=== PATIENT | male | born 1955 | race Caucasian/White ===

== ENCOUNTER 2018-12-24 09:22 | Inpatient (IN) | payer OTHER ==
[2018-12-24 10:25] VITALS: BMI 23.1
--- NOTE | 2018-12-24 11:32 | HP ---
CIWA Score Nausea/Vomitin Muscle Tremors: 2 Anxiety: 2 Agitation: 2 Paroxysmal Sweats: 1-Minimal Palms Moist Orientation: 0-Oriented Tacttile Disturbances: 1-Very Mild Itch/Numbness Auditory Disturbances: 1-Very Mild Visual Disturbances: 0-None Headache: 2-Mild CIWA-Ar Total Score: 13 - Admission Criteria [facility]ASAS Guidelines: Admission for Medically Managed Detox: Requires at least one of the followin. CIWA greater than 12 2. Seizures within the past 24 hours 3. Delirium tremens within the past 24 hours 4. Hallucinations within the past 24 hours 5. Acute intervention needed for co occurring medical disorder 6. Acute intervention needed for co occurring psychiatric disorder 7. Severe withdrawal that cannot be handled at a lower level of care (continued vomiting, continued diarrhea, abnormal vital signs) requiring intravenous medication and/or fluids 8. Admission ROS S - HPI Chief Complaint: i need help to stop drinking alcohol,marijuana,xanax Allergies/Adverse Reactions: Allergies Allergy/AdvReac Type Severity Reaction Status Date / Time No Known Allergies Allergy Verified 12/24/18 10:19 History of Present Illness: this 63 years old male with alcohol,marijuana and xanax dependence,withdrawal symptom, seen in [facility] last night had previous admissions in detox,last 2016 at [place] syncope fell yesterday nicotine dependence 1 pack/day, abrasion of right eyebrow bipolar disorer no medication longest sobriety 7 years plan to go to rehab after detox Exam Limitations: No Limitations - Ebola screening Have you traveled outside of the country in the last 21 days: No Have you had contact with anyone from an Ebola affected area: No Do you have a fever: No - Review of Systems Constitutional: Loss of Appetite, Malaise, Night Sweats, Changes in sleep, Weakness EENT: reports: Nose Congestion, Other (abrasion of right eyebrow) Respiratory: reports: No Symptoms reported Cardiac: reports: No Symptoms Reported GI: reports: Nausea, Poor Appetite, Vomiting, Abdominal cramping : reports: No Symptoms Reported Musculoskeletal: reports: Back Pain, Muscle Pain Integumentary: reports: Dryness Neuro: reports: Headache, Tremors Endocrine: reports: No Symptoms Reported Hematology: reports: No Symptoms Reported Psychiatric: reports: No Sypmtoms Reported, Judgement Intact, Mood/Affect Appropiate, Orientated x3, other (bipolar disorder) Other Systems: Reviewed and Negative Patient History - Patient Medical History Hx Anemia: No Hx Asthma: No Hx Chronic Obstructive Pulmonary Disease (COPD): No Hx Cancer: No Hx Cardiac Disorders: No Hx Congestive Heart Failure: No Hx Hypertension: No Hx Hypercholesterolemia: No Hx Pacemaker: No HX Cerebrovascular Accident: No Hx Seizures: No Hx Dementia: No Hx Diabetes: No Hx Gastrointestinal Disorders: No Hx Liver Disease: No Hx Genitourinary Disorders: No Hx Sexually Transmitted Disorders: No Hx Renal Disease (ESRD): No Hx Thyroid Disease: No Hx Human Immunodeficiency Virus (HIV): No (last 10/21 negative) Hx Hepatitis C: No Hx Depression: No Hx Suicide Attempt: No Hx Bipolar Disorder: Yes (no med) Hx Schizophrenia: No Other Medical History: no suicidal,no homicidal - Patient Surgical History Past Surgical History: No - PPD History Previous Implant?: Yes Documented Results: Negative w/o proof Implanted On Prior [facility] Admission?: No PPD to be Administered?: Yes - Smoking Cessation Smoking history: Current every day smoker Have you smoked in the past 12 months: Yes Aproximately how many cigarettes per day: 20 Cigars Per Day: 0 Hx Chewing Tobacco Use: No Initiated information on smoking cessation: Yes 'Breaking Loose' booklet given: 12/24/18 - Substance & Tx. History Hx Alcohol Use: Yes Hx Substance Use: Yes Substance Use Type: Alcohol, Marijuana, Tranquilizers Hx Substance Use Treatment: Yes ([facility] 2017) - Substances abused Alcohol Substance route: Oral Frequency: Daily Amount used: / WHISKY, 6 CANS OF OF BEER Age of first use: 12 Date of last use: 12/23/18 Alprazolam (Xanax) Substance route: Oral Frequency: 1-2 times per week Amount used: 4 mgs Age of first use: 54 Date of last use: 12/22/18 Marijuana/Hashish Substance route: Smoking Frequency: 1-2 times per week Amount used: 5$ Age of first use: 12 Date of last use: 12/10/18 Family Disease History - Family Disease History Family Disease History: Other: Father (alcohol,decesed), Mother (alcohol, ), Brother (alcohol,dsa), Sister (alcohol,dsa) Admission Physical Exam [facility] - Vital Signs Vital Signs: Vital Signs - 24 hr 12/24/18 10:19 Temperature 98.4 F Pulse Rate 95 H Respiratory 17 Rate Blood Pressure 122/78 - Physical General Appearance: Yes: Moderate Distress, Tremorous, Irritable, Sweating, Anxious HEENTM: Yes: Normal ENT Inspection, EDUARD, Pharynx Normal, Other (abrasion of rught eyebrow) Respiratory: Yes: Lungs Clear, Normal Breath Sounds, No Respiratory Distress Neck: Yes: Within Normal Limits, Supple, Trachea in good position Breast: Yes: Within Normal Limits Cardiology: Yes: Within Normal Limits, Regular Rhythm, Regular Rate, S1, S2 Abdominal: Yes: Within Normal Limits, Normal Bowel Sounds, Non Tender, Flat, Soft Genitourinary: Yes: Within Normal Limits Back: Yes: Muscle Spasm Musculoskeletal: Yes: Back pain, Muscle Pain Extremities: Yes: Within Normal Limits, Normal Range of Motion, Tremors Neurological: Yes: web services developer II-XII NML intact, Fully Oriented, Alert, Motor Strength 5/5 Integumentary: Yes: Dry Lymphatic: Yes: Within Normal Limits - Diagnostic (1) Alcohol dependence with uncomplicated withdrawal Current Visit: Yes Status: Acute (2) Cannabis abuse Current Visit: Yes Status: Acute (3) Sedative, hypnotic or anxiolytic abuse, uncomplicated Current Visit: Yes Status: Acute (4) Alcohol related seizure Current Visit: Yes Status: Acute (5) Syncope Current Visit: Yes Status: Acute (6) Abrasion of right eyebrow Current Visit: Yes Status: Acute (7) Bipolar disorder Current Visit: Yes Status: Acute (8) Nicotine dependence Current Visit: Yes Status: Acute Cleared for Admission [facility] - Detox or Rehab [facility] Level of Care: Medically Managed Detox Regimen/Protocol: Librium Breathalyzer - Breathalyzer Breathalyzer: 0 Urine Drug Screen - Test Device Lot number: [id number] Expiration date: 05/02/20 - Control Is test valid?: Yes - Results Drug screen NEGATIVE: No Urine drug screen results: THC-Marijuana, AMP-Amphetamines, BZO-Benzodiazepines Inpatient Rehab Admission - Rehab Decision to Admit Inpatient rehab admission?: No
[2018-12-24] MEDS ORDERED: MAGNESIUM HYDROX 2400MG/30ML ORAL SUSPENSION 30 ML CUP PO PRN (11:53)
[2018-12-24] MEDS ORDERED: BISMUTH SUBSALICYLATE 262 MG/15 ML BTL PO PRN (11:53)
[2018-12-24] MEDS ORDERED: MENTHOL/PHENOL 1 EACH UD MM PRN (11:53)
[2018-12-24] MEDS ORDERED: chlordiazePOXIDE HCL 25 MG CAPSULE PO PRN (11:53)
[2018-12-24] MEDS ORDERED: MAGNESIUM CITRATE 300 ML BOTTLE PO PRN (11:53)
[2018-12-24] MEDS ORDERED: MAG HYDROX/AL HYDROX/SIMETH 30 ML UNIT-DOSE CUP PO PRN (11:53)
[2018-12-24] MEDS ORDERED: ACETAMINOPHEN 325 MG TABLET (FP) PO PRN (11:53)
[2018-12-24] MEDS: BACITRACIN 0.9 GM PACKET TP SCH ×2 (12:47→22:50)
[2018-12-24] MEDS: NICOTINE 21 MG/24 HOURS TOPICAL PATCH TD SCH (13:57)
[2018-12-24 15:02] LABS: EPI CELLS 1.1 /HPF (0-5/HPF); URINE APPEARANCE CLEAR; URINE BILIRUBIN NEGATIVE (NEGATIVE); URINE CASTS 9 /lpf (0-8); URINE COLOR YELLOW; URINE GLUCOSE (UA) NEGATIVE (NEGATIVE); URINE KETONE NEGATIVE (NEGATIVE); URINE LEUK ESTERASE TRACE (NEGATIVE); URINE NITRITE NEGATIVE (NEGATIVE); URINE PROTEIN NEGATIVE (NEGATIVE); URINE RBC 1 /hpf (0-4); URINE UROBILINOGEN 0.2 mg/dL (0.2-1.0); URINE WBC 6 /hpf (0-5)
--- NOTE | 2018-12-24 15:13 | EKG ---
Test Reason : Blood Pressure : / mmHG Vent. Rate : 086 BPM Atrial Rate : 086 BPM P-R Int : 132 ms QRS Dur : 082 ms QT Int : 378 ms P-R-T Axes : 075 055 073 degrees QTc Int : 452 ms NORMAL SINUS RHYTHM NORMAL ECG NO PREVIOUS ECGS AVAILABLE Confirmed by NEELIMA SUAREZ, ANALISA ([id number]) on 12/24/2018 3:13:03 PM Referred By: Confirmed By:ANALISA ORTEZ MD
[2018-12-24] MEDS: chlordiazePOXIDE HCL 25 MG CAPSULE PO SCH ×2 (18:08→22:50)
[2018-12-24] MEDS: THIAMINE HCL 100 MG TABLET (FP) PO SCH (22:50)
[2018-12-24 22:56] LABS: HEMATOCRIT 41.8 % (35.4-49); HEMOGLOBIN 14.1 GM/dL (11.7-16.9); MCH 30.6 pg (25.7-33.7); MCHC 33.7 g/dl (32.0-35.9); MEAN CELL VOLUME 90.6 fl (80-96); MEAN PLT VOLUME 9.2 fl (7.5-11.1); PLATELET COUNT 163 K/MM3 (134-434); RBC 4.61 M/mm3 (4.00-5.60); RDW 14.4 % (11.9-15.9); WHITE BLOOD COUNT 7.8 K/mm3 (4.0-10.0)
[2018-12-24 23:10] LABS: ALBUMIN 3.6 g/dl (3.4-5.0); ALK PHOS 145 U/L (45-117); ANION GAP 6 MMOL/L (8-16); BILIRUBIN,TOTAL 0.2 mg/dL (0.2-1); BLOOD UREA NITROGEN 23 mg/dL (7-18); CHLORIDE 109 mmol/L (98-107); CO2 28 mmol/L (21-32); CREATININE 0.8 mg/dL (0.55-1.3); GLUCOSE,RANDOM 154 mg/dL (74-106); POTASSIUM 3.8 mmol/L (3.5-5.1); SGOT/AST 28 U/L (15-37); SGPT/ALT 59 U/L (13-61); SODIUM 143 mmol/L (136-145); TOT PROT 6.4 g/dl (6.4-8.2)
[2018-12-25] MEDS: chlordiazePOXIDE HCL 25 MG CAPSULE PO SCH ×4 (06:28→22:16)
[2018-12-25] MEDS: NICOTINE 21 MG/24 HOURS TOPICAL PATCH TD SCH (10:10)
[2018-12-25] MEDS: BACITRACIN 0.9 GM PACKET TP SCH ×2 (10:10→22:15)
[2018-12-25] MEDS: PRENATAL VITAMINS W/ FOLIC ACID TABLET (FP) PO SCH (10:11)
--- NOTE | 2018-12-25 11:45 | CONSULT ---
[facility] Psychiatric Consult - Data Date of interview: 12/25/18 Identifying data: Mr Judge is a 63 years old male, unemployed receiving public assistance, homeless seeking detox treatment for alcohol, benzodiazepine and cannabis Substance Abuse History: Reports history of alcohol, xanax and marijuana use. Refer to addiction counselor's summary for further information Medical History: Unremarkable except alcohol withdrawal seizure years ago. Smokes cigarettes 1 ppd Psychiatric History: Patient is a vague, non informative historian. Reports that he was diagnosed with Bipolar Disorder years ago and one previous psychiatric admission to [facility]. He could not provide any information regarding specific date, prescribed medications etc. Denies that he currently receives outpatient psychiatric treatment. However, external medication search shows scripts for Lorazepam 0.5 mg #60 and Ambien 10 mg#30 filled on 12/11/18 at [facility]. When confronted about these prescriptions, he admitted that he was prescribed these medications by a psychiarist he saw in [place], [place]. Claims he does not know what happened to these medications. Denies previous suicidal attempt. At present, denies experiencing psychotic, manic symptoms, S/ H ideations. However, he comes across as mildly irritable and reports feeling depressed and sleeping poorly Physical/Sexual Abuse/Trauma History: Denies history of emotional, physical or sexual abuse as well as DV relationship Additional Comment: Reports history of multiple previous arrests including a few felony convictions. Denies being on parole/probation at present Mental Status Exam - Mental Status Exam Alert and Oriented to: Time, Place, Person Patient Appearance: Disheveled Mood: Depressed, Irritable Affect: Appropriate Patient Behavior: Cooperative (superficially) Speech Pattern: Clear Voice Loudness: Normal Thought Process: Intact, Goal Oriented Thought Disorder: Not Present Hallucinations: Denies Suicidal Ideation: Denies Homicidal Ideation: Denies Insight/Judgement: Poor Sleep: Poorly Appetite: Poor Muscle strength/Tone: Normal Gait/Station: Normal Psychiatric Findings - Problem List ([place] 1, 2,3) (1) Mood disorder Current Visit: Yes Status: Chronic (2) Bipolar disorder Current Visit: Yes Status: Ruled-out (3) Alcohol dependence with uncomplicated withdrawal Current Visit: Yes Status: Acute (4) Sedative, hypnotic or anxiolytic abuse, uncomplicated Current Visit: Yes Status: Acute (5) Cannabis abuse Current Visit: Yes Status: Acute (6) Nicotine dependence Current Visit: Yes Status: Chronic (7) Alcohol related seizure Current Visit: Yes Status: Resolved - Initial Treatment Plan Initial Treatment Plan: 1) Start Melatonin 5 mg po HS prn for insomnia. 2) Continue inpatient detoxification
--- NOTE | 2018-12-25 13:34 | PN ---
[facility] CIWA - CIWA Score Nausea/Vomitin-No Nausea/No Vomiting Muscle Tremors: 3 Anxiety: 3 Agitation: 3 Paroxysmal Sweats: 3 Orientation: 0-Oriented Tacttile Disturbances: 0-None Auditory Disturbances: 0-None Visual Disturbances: 0-None Headache: 0-None Present CIWA-Ar Total Score: 12 S Progress Note (SOAP) Subjective: shakes sweats unsteady body aches Objective: 12/25/18 13:33 Vital Signs Temperature 97.9 F 12/25/18 09:09 Pulse Rate 82 12/25/18 09:09 Respiratory Rate 18 12/25/18 09:09 Blood Pressure 104/69 12/25/18 09:09 O2 Sat by Pulse Oximetry (%) Laboratory Tests 12/24/18 12/24/18 12/24/18 12:00 12:00 12:00 WBC 7.8 RBC 4.61 Hgb 14.1 Hct 41.8 MCV 90.6 MCH 30.6 MCHC 33.7 RDW 14.4 Plt Count 163 MPV 9.2 Sodium 143 Potassium 3.8 Chloride 109 H Carbon Dioxide 28 Anion Gap 6 L BUN 23 H Creatinine 0.8 Creat Clearance w eGFR 97.32 Random Glucose 154 H Calcium 9.0 Total Bilirubin 0.2 AST 28 ALT 59 Alkaline Phosphatase 145 H Total Protein 6.4 Albumin 3.6 Urine Color Yellow Urine Appearance Clear Urine pH 5.0 Ur Specific [place] 1.024 Urine Protein Negative Urine Glucose (UA) Negative Urine Ketones Negative Urine Blood Negative Urine Nitrite Negative Urine Bilirubin Negative Urine Urobilinogen 0.2 Ur Leukocyte Esterase Trace Urine WBC (Auto) 6 Urine RBC (Auto) 1 Urine Casts (Auto) 9 U Epithel Cells (Auto) 1.1 Urine Bacteria (Auto) 1.0 RPR Titer 12/24/18 12:00 WBC RBC Hgb Hct MCV MCH MCHC RDW Plt Count MPV Sodium Potassium Chloride Carbon Dioxide Anion Gap BUN Creatinine Creat Clearance w eGFR Random Glucose Calcium Total Bilirubin AST ALT Alkaline Phosphatase Total Protein Albumin Urine Color Urine Appearance Urine pH Ur Specific [place] Urine Protein Urine Glucose (UA) Urine Ketones Urine Blood Urine Nitrite Urine Bilirubin Urine Urobilinogen Ur Leukocyte Esterase Urine WBC (Auto) Urine RBC (Auto) Urine Casts (Auto) U Epithel Cells (Auto) Urine Bacteria (Auto) RPR Titer Nonreactive aaox3 ambulating no acute distress Assessment: 12/25/18 13:33 withdrawal sx Plan: continue detox increase fluids
--- NOTE | 2018-12-25 17:45 | PN ---
S Progress Note Note: Vital Signs Temp 98.1 F 12/25/18 17:15 Pulse 85 12/25/18 17:15 Resp 18 12/25/18 17:15 BP 126/69 12/25/18 17:15 Pulse Ox patient requested neurontin, home list reviewed patient on neuronitn 300 mg qd for naturopathic pain. Med ordered \ continue to monitor
[2018-12-25] MEDS ORDERED: GABAPENTIN 300 MG CAPSULE (FP) PO ONE (18:00)
[2018-12-25] MEDS: METHOCARBAMOL 500 MG TABLET PO PRN (20:20)
[2018-12-25] MEDS: THIAMINE HCL 100 MG TABLET (FP) PO SCH (22:15)
[2018-12-25] MEDS: MELATONIN 5 MG TABLETS PO PRN (22:16)
[2018-12-26] MEDS: chlordiazePOXIDE HCL 25 MG CAPSULE PO SCH ×2 (05:22→10:04)
[2018-12-26] MEDS: GABAPENTIN 300 MG CAPSULE (FP) PO SCH (10:04)
[2018-12-26] MEDS: PRENATAL VITAMINS W/ FOLIC ACID TABLET (FP) PO SCH (10:04)
[2018-12-26] MEDS: NICOTINE 21 MG/24 HOURS TOPICAL PATCH TD SCH (10:05)
--- NOTE | 2018-12-26 10:57 | PN ---
[facility] CIWA - CIWA Score Nausea/Vomitin-No Nausea/No Vomiting Muscle Tremors: 3 Anxiety: 2 Agitation: 3 Paroxysmal Sweats: 3 Orientation: 0-Oriented Tacttile Disturbances: 0-None Auditory Disturbances: 0-None Visual Disturbances: 0-None Headache: 0-None Present CIWA-Ar Total Score: 11 [facility] Progress Note (SOAP) Subjective: body aches sweats shakes interrupted sleep body aches Objective: 12/26/18 10:56 Vital Signs Temperature 96.4 F L 12/26/18 09:19 Pulse Rate 84 12/26/18 09:19 Respiratory Rate 18 12/26/18 09:19 Blood Pressure 124/72 12/26/18 09:19 O2 Sat by Pulse Oximetry (%) Laboratory Tests 12/24/18 12/24/18 12/24/18 12:00 12:00 12:00 WBC 7.8 RBC 4.61 Hgb 14.1 Hct 41.8 MCV 90.6 MCH 30.6 MCHC 33.7 RDW 14.4 Plt Count 163 MPV 9.2 Sodium 143 Potassium 3.8 Chloride 109 H Carbon Dioxide 28 Anion Gap 6 L BUN 23 H Creatinine 0.8 Creat Clearance w eGFR 97.32 Random Glucose 154 H Calcium 9.0 Total Bilirubin 0.2 AST 28 ALT 59 Alkaline Phosphatase 145 H Total Protein 6.4 Albumin 3.6 Urine Color Yellow Urine Appearance Clear Urine pH 5.0 Ur Specific [place] 1.024 Urine Protein Negative Urine Glucose (UA) Negative Urine Ketones Negative Urine Blood Negative Urine Nitrite Negative Urine Bilirubin Negative Urine Urobilinogen 0.2 Ur Leukocyte Esterase Trace Urine WBC (Auto) 6 Urine RBC (Auto) 1 Urine Casts (Auto) 9 U Epithel Cells (Auto) 1.1 Urine Bacteria (Auto) 1.0 RPR Titer 12/24/18 12:00 WBC RBC Hgb Hct MCV MCH MCHC RDW Plt Count MPV Sodium Potassium Chloride Carbon Dioxide Anion Gap BUN Creatinine Creat Clearance w eGFR Random Glucose Calcium Total Bilirubin AST ALT Alkaline Phosphatase Total Protein Albumin Urine Color Urine Appearance Urine pH Ur Specific [place] Urine Protein Urine Glucose (UA) Urine Ketones Urine Blood Urine Nitrite Urine Bilirubin Urine Urobilinogen Ur Leukocyte Esterase Urine WBC (Auto) Urine RBC (Auto) Urine Casts (Auto) U Epithel Cells (Auto) Urine Bacteria (Auto) RPR Titer Nonreactive aaox3 ambulating no acute distress Assessment: 12/26/18 10:57 withdrawal sx Plan: continue detox increase fluids
[2018-12-26] MEDS: BACITRACIN 0.9 GM PACKET TP SCH ×2 (11:27→22:03)
[2018-12-26] MEDS ORDERED: chlordiazePOXIDE HCL 10 MG CAPSULE PO PRN (17:00)
[2018-12-26] MEDS: chlordiazePOXIDE HCL 10 MG CAPSULE PO SCH ×2 (17:47→22:03)
[2018-12-26] MEDS: METHOCARBAMOL 500 MG TABLET PO PRN (17:49)
[2018-12-26] MEDS: hydrOXYzine PAMOATE 25 MG CAPSULE (FP) PO PRN (17:49)
[2018-12-26] MEDS: MELATONIN 5 MG TABLETS PO PRN (22:03)
[2018-12-26] MEDS: THIAMINE HCL 100 MG TABLET (FP) PO SCH (22:03)
[2018-12-27] MEDS: hydrOXYzine PAMOATE 25 MG CAPSULE (FP) PO PRN ×4 (00:23→22:09)
[2018-12-27] MEDS: chlordiazePOXIDE HCL 10 MG CAPSULE PO SCH ×3 (05:28→17:23)
[2018-12-27] MEDS: IBUPROFEN 400 MG TABLET (FP) PO PRN (10:10)
[2018-12-27] MEDS: METHOCARBAMOL 500 MG TABLET PO PRN ×2 (10:10→17:23)
[2018-12-27] MEDS: BACITRACIN 0.9 GM PACKET TP SCH ×2 (10:11→22:07)
[2018-12-27] MEDS: PRENATAL VITAMINS W/ FOLIC ACID TABLET (FP) PO SCH (10:11)
[2018-12-27] MEDS: NICOTINE 21 MG/24 HOURS TOPICAL PATCH TD SCH (10:11)
[2018-12-27] MEDS: GABAPENTIN 300 MG CAPSULE (FP) PO SCH (10:11)
--- NOTE | 2018-12-27 12:57 | PN ---
S CIWA - CIWA Score Nausea/Vomitin-No Nausea/No Vomiting Muscle Tremors: 2 Anxiety: 1-Mildly Anxious Agitation: 2 Paroxysmal Sweats: 1-Minimal Palms Moist Orientation: 0-Oriented Tacttile Disturbances: 0-None Auditory Disturbances: 0-None Visual Disturbances: 0-None Headache: 0-None Present CIWA-Ar Total Score: 6 [facility] Progress Note (SOAP) Subjective: shakes agitation Objective: 12/27/18 12:56 Vital Signs Temperature 97.7 F 12/27/18 09:43 Pulse Rate 88 12/27/18 09:43 Respiratory Rate 16 12/27/18 09:43 Blood Pressure 113/65 12/27/18 09:43 O2 Sat by Pulse Oximetry (%) aaox3 ambulating no acute distress Assessment: 12/27/18 12:57 mild withdrawal sx Plan: continue detox increase fluids
[2018-12-27] MEDS: ACETAMINOPHEN 325 MG TABLET (FP) PO PRN (15:12)
[2018-12-27] MEDS: THIAMINE HCL 100 MG TABLET (FP) PO SCH (22:07)
[2018-12-27] MEDS: MELATONIN 5 MG TABLETS PO PRN (22:07)
[2018-12-28] MEDS: IBUPROFEN 400 MG TABLET (FP) PO PRN (02:14)
[2018-12-28] MEDS: hydrOXYzine PAMOATE 25 MG CAPSULE (FP) PO PRN ×3 (03:10→22:28)
[2018-12-28] MEDS: chlordiazePOXIDE HCL 10 MG CAPSULE PO SCH ×2 (06:18→17:37)
--- NOTE | 2018-12-28 11:19 | PN ---
S CIWA - CIWA Score Nausea/Vomitin-No Nausea/No Vomiting Muscle Tremors: 2 Anxiety: 2 Agitation: 0-Normal Activity Paroxysmal Sweats: No Perspiration Orientation: 0-Oriented Tacttile Disturbances: 0-None Auditory Disturbances: 0-None Visual Disturbances: 0-None Headache: 1-Very Mild CIWA-Ar Total Score: 5 [facility] Progress Note (SOAP) Subjective: patient c/o anxiety, shakes and headache Objective: 12/28/18 11:18 Laboratory Tests 12/24/18 12/24/18 12/24/18 12:00 12:00 12:00 WBC 7.8 RBC 4.61 Hgb 14.1 Hct 41.8 MCV 90.6 MCH 30.6 MCHC 33.7 RDW 14.4 Plt Count 163 MPV 9.2 Sodium 143 Potassium 3.8 Chloride 109 H Carbon Dioxide 28 Anion Gap 6 L BUN 23 H Creatinine 0.8 Creat Clearance w eGFR 97.32 Random Glucose 154 H Calcium 9.0 Total Bilirubin 0.2 AST 28 ALT 59 Alkaline Phosphatase 145 H Total Protein 6.4 Albumin 3.6 Urine Color Yellow Urine Appearance Clear Urine pH 5.0 Ur Specific [place] 1.024 Urine Protein Negative Urine Glucose (UA) Negative Urine Ketones Negative Urine Blood Negative Urine Nitrite Negative Urine Bilirubin Negative Urine Urobilinogen 0.2 Ur Leukocyte Esterase Trace Urine WBC (Auto) 6 Urine RBC (Auto) 1 Urine Casts (Auto) 9 U Epithel Cells (Auto) 1.1 Urine Bacteria (Auto) 1.0 RPR Titer 12/24/18 12:00 WBC RBC Hgb Hct MCV MCH MCHC RDW Plt Count MPV Sodium Potassium Chloride Carbon Dioxide Anion Gap BUN Creatinine Creat Clearance w eGFR Random Glucose Calcium Total Bilirubin AST ALT Alkaline Phosphatase Total Protein Albumin Urine Color Urine Appearance Urine pH Ur Specific [place] Urine Protein Urine Glucose (UA) Urine Ketones Urine Blood Urine Nitrite Urine Bilirubin Urine Urobilinogen Ur Leukocyte Esterase Urine WBC (Auto) Urine RBC (Auto) Urine Casts (Auto) U Epithel Cells (Auto) Urine Bacteria (Auto) RPR Titer Nonreactive Vital Signs Temperature 97.7 F 12/28/18 09:35 Pulse Rate 85 12/28/18 09:35 Respiratory Rate 18 12/28/18 09:35 Blood Pressure 129/79 12/28/18 09:35 O2 Sat by Pulse Oximetry (%) pe: alert and oriented x 3 skin warm and dry ext +tremors, amb ad norbert anxious Assessment: 12/28/18 11:19 withdrawal sx Plan: continue detox for d/c in am
[2018-12-28] MEDS: GABAPENTIN 300 MG CAPSULE (FP) PO SCH (11:23)
[2018-12-28] MEDS: BACITRACIN 0.9 GM PACKET TP SCH ×2 (11:23→22:30)
[2018-12-28] MEDS: NICOTINE 21 MG/24 HOURS TOPICAL PATCH TD SCH (11:24)
[2018-12-28] MEDS: PRENATAL VITAMINS W/ FOLIC ACID TABLET (FP) PO SCH (11:24)
[2018-12-28] MEDS: METHOCARBAMOL 500 MG TABLET PO PRN (18:59)
[2018-12-28] MEDS: THIAMINE HCL 100 MG TABLET (FP) PO SCH (22:28)
[2018-12-28] MEDS: MELATONIN 5 MG TABLETS PO PRN (22:28)
[2018-12-29] MEDS: hydrOXYzine PAMOATE 25 MG CAPSULE (FP) PO PRN (03:30)
[2018-12-29] MEDS: METHOCARBAMOL 500 MG TABLET PO PRN (05:23)
[2018-12-29] MEDS: ACETAMINOPHEN 325 MG TABLET (FP) PO PRN (06:42)
--- NOTE | 2018-12-29 10:09 | DS ---
[facility] Detox Discharge Summary Admission Date: 12/24/18 Discharge Date: 12/29/18 - History Present History: Alcohol Dependence, Cannabis Dependence, Sedative Dependence - Physical Exam Results Vital Signs: Vital Signs Temperature 97.2 F L 12/29/18 09:05 Pulse Rate 90 12/29/18 09:05 Respiratory Rate 18 12/29/18 09:05 Blood Pressure 134/83 12/29/18 09:05 O2 Sat by Pulse Oximetry (%) - Treatment Hospital Course: Detox Protocol Followed, Detoxed Safely, Responded well, Discharged Condition Good, Rehab Referral Accepted - Medication Discharge Medications: Ambulatory Orders NK [No Known Home Medication] 12/24/18 - Diagnosis (1) Abrasion of right eyebrow Current Visit: Yes Status: Acute Qualifiers: Encounter type: initial encounter Qualified Code(s): S00.211A - Abrasion of right eyelid and periocular area, initial encounter (2) Alcohol dependence with uncomplicated withdrawal Current Visit: Yes Status: Chronic (3) Bipolar disorder Current Visit: Yes Status: Acute (4) Cannabis abuse Current Visit: Yes Status: Chronic (5) Sedative, hypnotic or anxiolytic abuse, uncomplicated Current Visit: Yes Status: Chronic (6) Syncope Current Visit: Yes Status: Acute (7) Mood disorder Current Visit: Yes Status: Chronic (8) Nicotine dependence Current Visit: Yes Status: Chronic Qualifiers: Nicotine product type: cigarettes Substance use status: uncomplicated Qualified Code(s): F17.210 - Nicotine dependence, cigarettes, uncomplicated (9) Alcohol related seizure Current Visit: No Status: Resolved (10) Bipolar disorder Current Visit: Yes Status: Ruled-out - AMA Did Patient Leave Against Medical Advice: No (referred to inpatient rehab)
[2018-12-29] MEDS: PRENATAL VITAMINS W/ FOLIC ACID TABLET (FP) PO SCH (10:16)
[2018-12-29] MEDS: BACITRACIN 0.9 GM PACKET TP SCH (10:16)
[2018-12-29] MEDS: GABAPENTIN 300 MG CAPSULE (FP) PO SCH (10:16)
[2018-12-29] MEDS: NICOTINE 21 MG/24 HOURS TOPICAL PATCH TD SCH (10:18)
[2018-12-29 13:26] VITALS: BP 135/80; PULSE 88; TEMP 97.4
== END 2018-12-29 14:11 | disposition home or self-care (01) | DRG 775 ==
LOC: YASAS 09:22 → Y6N 12:14
PROVIDERS: ADMIT Surgery; ATTEND Surgery
PROC: HZ2ZZZZ Detoxification Services for Substance Abuse Treatment (ICD-10-PCS; principal; 2018-12-24)
DX: F10.230 Alcohol dependence with withdrawal, uncomplicated (principal); F13.230 Sedative, hypnotic or anxiolytic dependence with withdrawal, uncomplicated; F12.20 Cannabis dependence, uncomplicated; F17.210 Nicotine dependence, cigarettes, uncomplicated; F39 Unspecified mood [affective] disorder; F31.9 Bipolar disorder, unspecified; R55 Syncope and collapse; R56.9 Unspecified convulsions; S00.211D Abrasion of right eyelid and periocular area, subsequent encounter; Z91.81 History of falling
CPT/HCPCS: 36415; 80053; 81003; 85027; 86593; 93005; 93010

== ENCOUNTER 2019-01-28 11:15 | Inpatient (IN) | payer OTHER ==
[2019-01-28 13:19] VITALS: BMI 23.3
--- NOTE | 2019-01-28 16:25 | HP ---
CIWA Score Nausea/Vomitin-No Nausea/No Vomiting Muscle Tremors: 4-Moderate,w/Arms Extend Anxiety: 3 Agitation: 3 Paroxysmal Sweats: 3 Orientation: 0-Oriented Tacttile Disturbances: 0-None Auditory Disturbances: 0-None Visual Disturbances: 0-None Headache: 0-None Present CIWA-Ar Total Score: 13 - Admission Criteria OASAS Guidelines: Admission for Medically Managed Detox: Requires at least one of the followin. CIWA greater than 12 2. Seizures within the past 24 hours 3. Delirium tremens within the past 24 hours 4. Hallucinations within the past 24 hours 5. Acute intervention needed for co occurring medical disorder 6. Acute intervention needed for co occurring psychiatric disorder 7. Severe withdrawal that cannot be handled at a lower level of care (continued vomiting, continued diarrhea, abnormal vital signs) requiring intravenous medication and/or fluids 8. Admission ROS S - HPI Chief Complaint: I recently relapsed and need to be here again for detox and rehab. Allergies/Adverse Reactions: Allergies Allergy/AdvReac Type Severity Reaction Status Date / Time No Known Allergies Allergy Verified 12/24/18 10:19 History of Present Illness: pt is a 63yr old male with a history of alcohol dependence seeking detox for treatment. Exam Limitations: No Limitations - Ebola screening Have you traveled outside of the country in the last 21 days: No (N) Have you had contact with anyone from an Ebola affected area: No Have you been sick,other than usual withdrawal symptoms: No Do you have a fever: No - Review of Systems Constitutional: Chills, Night Sweats, Changes in sleep EENT: reports: Tearing, Nose Congestion Respiratory: reports: No Symptoms reported Cardiac: reports: No Symptoms Reported GI: reports: Poor Appetite, Poor Fluid Intake : reports: No Symptoms Reported Musculoskeletal: reports: Back Pain, Joint Pain Integumentary: reports: Dryness, Flushing, Sweating Neuro: reports: Headache, Tingling, Tremors Endocrine: reports: Excessive Sweating, Flushing, Intolerance to Cold, Intolerance to Heat Hematology: reports: No Symptoms Reported Psychiatric: reports: Judgement Intact, Mood/Affect Appropiate, Orientated x3, Agitated, Anxious Other Systems: Reviewed and Negative Patient History - Patient Medical History Hx Anemia: No Hx Asthma: No Hx Chronic Obstructive Pulmonary Disease (COPD): No Hx Cancer: No Hx Cardiac Disorders: No Hx Congestive Heart Failure: No Hx Hypertension: No Hx Hypercholesterolemia: No Hx Pacemaker: No HX Cerebrovascular Accident: No Hx Seizures: No Hx Dementia: No Hx Diabetes: No Hx Gastrointestinal Disorders: No Hx Liver Disease: No Hx Genitourinary Disorders: No Hx Sexually Transmitted Disorders: No Hx Renal Disease (ESRD): No Hx Thyroid Disease: No Hx Human Immunodeficiency Virus (HIV): No (last 10/21 negative) Hx Hepatitis C: No Hx Depression: No Hx Suicide Attempt: No Hx Bipolar Disorder: Yes (no med) Hx Schizophrenia: No - Patient Surgical History Past Surgical History: No - PPD History Previous Implant?: Yes Documented Results: Negative w/proof Date: 12/26/18 Results: 0mm PPD to be Administered?: No - Reproductive History Patient is a Female of Child Bearing Age (11 -55 yrs old): No - Smoking Cessation Smoking history: Current every day smoker Have you smoked in the past 12 months: Yes Aproximately how many cigarettes per day: 20 Cigars Per Day: 0 Hx Chewing Tobacco Use: No Initiated information on smoking cessation: Yes 'Breaking Loose' booklet given: 01/28/19 - Substance & Tx. History Hx Alcohol Use: Yes Hx Substance Use: Yes Substance Use Type: Alcohol, Marijuana, Tranquilizers Hx Substance Use Treatment: Yes ([facility] 12/2018) - Substances abused Alcohol Substance route: Oral Frequency: Daily Amount used: 1/5 TH WHISKY, 6 CANS OF OF BEER Age of first use: 12 Date of last use: 01/27/19 Alprazolam (Xanax) Substance route: Oral Frequency: 1-2 times per week Amount used: 4 mgs Age of first use: 54 Date of last use: 01/14/19 Marijuana/Hashish Substance route: Smoking Frequency: 1-2 times per week Amount used: 5$ Age of first use: 12 Date of last use: 12/10/18 Other Other (specify): Percocet Substance route: Oral Frequency: 3-6 times per week Amount used: 5 Age of first use: 39 Date of last use: 01/22/19 Family Disease History - Family Disease History Family Disease History: Other: Father (alcohol,decesed), Mother (alcohol, ), Brother (alcohol,dsa), Sister (alcohol,dsa) Admission Physical Exam [facility] - Vital Signs Vital Signs: Vital Signs - 24 hr 01/28/19 13:11 Temperature 97.5 F L Pulse Rate 71 Respiratory 20 Rate Blood Pressure 107/71 - Physical General Appearance: Yes: Appropriately Dressed, Moderate Distress, Tremorous, Irritable, Sweating, Anxious HEENTM: Yes: Normal Voice, Nasal Congestion Respiratory: Yes: Lungs Clear, Normal Breath Sounds, No Respiratory Distress Neck: Yes: No masses,lesions,Nodules Breast: Yes: Within Normal Limits Cardiology: Yes: Regular Rhythm, Regular Rate, S1, S2 Abdominal: Yes: Normal Bowel Sounds, Non Tender, Soft Genitourinary: Yes: Within Normal Limits Back: Yes: Normal Inspection Musculoskeletal: Yes: full range of Motion Extremities: Yes: Normal Capillary Refill, Normal Inspection, Non-Tender, Tremors Neurological: Yes: Fully Oriented, Alert, Normal Response Integumentary: Yes: Normal Color Lymphatic: Yes: Within Normal Limits - Diagnostic (1) Bipolar disorder Current Visit: Yes Status: Acute (2) Alcohol dependence with uncomplicated withdrawal Current Visit: Yes Status: Chronic (3) Cannabis abuse Current Visit: Yes Status: Chronic (4) Nicotine dependence Current Visit: Yes Status: Chronic Qualifiers: Nicotine product type: cigarettes Substance use status: uncomplicated Qualified Code(s): F17.210 - Nicotine dependence, cigarettes, uncomplicated (5) Sedative, hypnotic or anxiolytic abuse, uncomplicated Current Visit: Yes Status: Chronic Cleared for Admission [facility] - Detox or Rehab [facility] Level of Care: Medically Managed Detox Regimen/Protocol: Librium Breathalyzer - Breathalyzer Breathalyzer: 0 Urine Drug Screen - Test Device Lot number: [id number] Expiration date: 05/02/20 - Control Is test valid?: Yes - Results Drug screen NEGATIVE: No Urine drug screen results: THC-Marijuana, AMP-Amphetamines, BZO-Benzodiazepines Inpatient Rehab Admission - Rehab Decision to Admit Inpatient rehab admission?: No
[2019-01-28] MEDS ORDERED: IBUPROFEN 400 MG TABLET (FP) PO PRN (16:36)
[2019-01-28] MEDS ORDERED: MAG HYDROX/AL HYDROX/SIMETH 30 ML UNIT-DOSE CUP PO PRN (16:36)
[2019-01-28] MEDS ORDERED: MAGNESIUM HYDROX 2400MG/30ML ORAL SUSPENSION 30 ML CUP PO PRN (16:36)
[2019-01-28] MEDS ORDERED: MENTHOL/PHENOL 1 EACH UD MM PRN (16:36)
[2019-01-28] MEDS ORDERED: ACETAMINOPHEN 325 MG TABLET (FP) PO PRN ×2 (16:36)
[2019-01-28] MEDS ORDERED: MAGNESIUM CITRATE 300 ML BOTTLE PO PRN (16:36)
[2019-01-28] MEDS ORDERED: ONDANSETRON *ODT* 4 MG TABLET SL PRN (16:36)
[2019-01-28] MEDS: chlordiazePOXIDE HCL 25 MG CAPSULE PO PRN (17:43)
[2019-01-28] MEDS: THIAMINE HCL 100 MG TABLET (FP) PO SCH (22:33)
[2019-01-28] MEDS: MELATONIN 5 MG TABLETS PO PRN (22:33)
[2019-01-28] MEDS: chlordiazePOXIDE HCL 25 MG CAPSULE PO SCH (22:33)
[2019-01-29] MEDS: chlordiazePOXIDE HCL 25 MG CAPSULE PO SCH ×4 (06:46→22:37)
--- NOTE | 2019-01-29 08:56 | CONSULT ---
[facility] Psychiatric Consult - Data Date of interview: 01/29/19 Admission source: [facility] Identifying data: Mr Hernandez is a 63 years old , unemployed receiving food stamp, homeless seeking detox treatment for alcohol, opioid, benzodiazepune abd cannabis Substance Abuse History: Reports history of alcohol, percocet, xanax and marijuana use. Refer to addiction counselor's summary for further information Medical History: Significant for alcohol related seizure. Smokes [id number] Psychiatric History: Patient is a poor, unreliable historian. Reports that he was diagnosed with Bipolar Disorder a few years ago. Reports one previous psychiatric hospitalization in a facility in [place]. He is unable not only to provide admission date and name of facility buy and detals pertinent to that admission including treatment. Denies current OPD care or suicidal attempt.External medication history shows scripts for 30 days supply Gabapentin 300 mg#90 and Seroquel 50 mg#90. When confronted regarding above, he said that Gabapentin is for neuropathy and Seroquel was prescribed to him for sleep but he hardly takes it. At present, denies experiencing psychotic, manic or depressive symptoms, S/H ideations Physical/Sexual Abuse/Trauma History: Denies history of emotional, physical or sexual abuse as well as DV relationship. No service Additional Comment: Reports history of multiple previous arrrests including one felony conviction. Denies being on parole/probation at present. Mental Status Exam - Mental Status Exam Alert and Oriented to: Time, Place, Person Cognitive Function: Fair Patient Appearance: Disheveled Mood: Hopeful, Euthymic Patient Behavior: Cooperative Speech Pattern: Clear Voice Loudness: Normal Thought Process: Intact, Goal Oriented Hallucinations: Denies Suicidal Ideation: Denies Homicidal Ideation: Denies Insight/Judgement: Poor Sleep: Poorly Appetite: Fair Muscle strength/Tone: Normal Gait/Station: Normal Psychiatric Findings - Problem List (Luther 1, 2,3) (1) Mood disorder Current Visit: Yes Status: Chronic (2) Bipolar disorder Current Visit: Yes Status: Ruled-out (3) Substance-induced sleep disorder Current Visit: Yes Status: Acute (4) Alcohol dependence with uncomplicated withdrawal Current Visit: Yes Status: Chronic (5) Opioid dependence with withdrawal Current Visit: Yes Status: Acute (6) Sedative, hypnotic or anxiolytic abuse, uncomplicated Current Visit: Yes Status: Acute (7) Cannabis abuse Current Visit: Yes Status: Acute (8) Nicotine dependence Current Visit: Yes Status: Chronic Qualifiers: Nicotine product type: cigarettes Substance use status: uncomplicated Qualified Code(s): F17.210 - Nicotine dependence, cigarettes, uncomplicated (9) Alcohol related seizure Current Visit: Yes Status: Resolved - Initial Treatment Plan Initial Treatment Plan: Continue inpatient detoxification
[2019-01-29 10:12] LABS: ALBUMIN 3.4 g/dl (3.4-5.0); BILIRUBIN,TOTAL 0.2 mg/dL (0.2-1); CALCIUM 8.2 mg/dL (8.5-10.1); CREATININE 0.6 mg/dL (0.55-1.3); POTASSIUM 3.9 mmol/L (3.5-5.1)
[2019-01-29 10:27] LABS: HEMATOCRIT 41.9 % (35.4-49); HEMOGLOBIN 14.2 GM/dL (11.7-16.9); MCH 30.1 pg (25.7-33.7); MCHC 33.9 g/dl (32.0-35.9); MEAN CELL VOLUME 88.7 fl (80-96); MEAN PLT VOLUME 9.9 fl (7.5-11.1); PLATELET COUNT 176 K/MM3 (134-434); RBC 4.73 M/mm3 (4.00-5.60); RDW 13.4 % (11.9-15.9); WHITE BLOOD COUNT 5.9 K/mm3 (4.0-10.0)
[2019-01-29] MEDS: PRENATAL VITAMINS W/ FOLIC ACID TABLET (FP) PO SCH (10:39)
[2019-01-29] MEDS: NICOTINE 21 MG/24 HOURS TOPICAL PATCH TD SCH (10:40)
--- NOTE | 2019-01-29 11:57 | PN ---
S CIWA - CIWA Score Nausea/Vomitin Muscle Tremors: 2 Anxiety: 2 Agitation: 2 Paroxysmal Sweats: 2 Orientation: 0-Oriented Tacttile Disturbances: 1-Very Mild Itch/Numbness Auditory Disturbances: 1-Very Mild Visual Disturbances: 0-None Headache: 2-Mild CIWA-Ar Total Score: 14 S Progress Note (SOAP) Subjective: alert,irritable,anxious,interrupted sleep, Objective: 01/29/19 11:54 Vital Signs Temperature 96.6 F L 01/29/19 09:53 Pulse Rate 71 01/29/19 09:53 Respiratory Rate 18 01/29/19 09:53 Blood Pressure 115/65 01/29/19 09:53 O2 Sat by Pulse Oximetry (%) 01/29/19 11:55 Laboratory Last Values WBC 5.9 K/mm3 (4.0-10.0) 01/29/19 07:30 RBC 4.73 M/mm3 (4.00-5.60) 01/29/19 07:30 Hgb 14.2 GM/dL (11.7-16.9) 01/29/19 07:30 Hct 41.9 % (35.4-49) 01/29/19 07:30 MCV 88.7 fl (80-96) 01/29/19 07:30 MCH 30.1 pg (25.7-33.7) 01/29/19 07:30 MCHC 33.9 g/dl (32.0-35.9) 01/29/19 07:30 RDW 13.4 % (11.9-15.9) 01/29/19 07:30 Plt Count 176 K/MM3 (134-434) 01/29/19 07:30 MPV 9.9 fl (7.5-11.1) 01/29/19 07:30 Sodium 142 mmol/L (136-145) 01/29/19 07:30 Potassium 3.9 mmol/L (3.5-5.1) 01/29/19 07:30 Chloride 109 mmol/L (98-107) H 01/29/19 07:30 Carbon Dioxide 27 mmol/L (21-32) 01/29/19 07:30 Anion Gap 6 MMOL/L (8-16) L 01/29/19 07:30 BUN 14 mg/dL (7-18) 01/29/19 07:30 Creatinine 0.6 mg/dL (0.55-1.3) 01/29/19 07:30 Est GFR (CKD-EPI)AfAm 123.15 01/29/19 07:30 Est GFR (CKD-EPI)NonAf 106.25 01/29/19 07:30 Random Glucose 112 mg/dL (74-106) H 01/29/19 07:30 Calcium 8.2 mg/dL (8.5-10.1) L 01/29/19 07:30 Total Bilirubin 0.2 mg/dL (0.2-1) 01/29/19 07:30 AST 9 U/L (15-37) L 01/29/19 07:30 ALT 24 U/L (13-61) 01/29/19 07:30 Alkaline Phosphatase 109 U/L (45-117) 01/29/19 07:30 Total Protein 6.0 g/dl (6.4-8.2) L 01/29/19 07:30 Albumin 3.4 g/dl (3.4-5.0) 01/29/19 07:30 Assessment: 01/29/19 11:56 withdrawal symptom Plan: continue detox,bgm is 112,will do fbs in am
[2019-01-29] MEDS: METHOCARBAMOL 500 MG TABLET PO PRN (20:28)
[2019-01-29] MEDS: MELATONIN 5 MG TABLETS PO PRN (22:37)
[2019-01-29] MEDS: THIAMINE HCL 100 MG TABLET (FP) PO SCH (22:37)
[2019-01-30] MEDS: chlordiazePOXIDE HCL 25 MG CAPSULE PO SCH ×3 (04:30→18:07)
[2019-01-30] MEDS: METHOCARBAMOL 500 MG TABLET PO PRN ×2 (05:44→22:26)
[2019-01-30] MEDS: PRENATAL VITAMINS W/ FOLIC ACID TABLET (FP) PO SCH (10:05)
[2019-01-30] MEDS: NICOTINE 21 MG/24 HOURS TOPICAL PATCH TD SCH (10:06)
--- NOTE | 2019-01-30 10:40 | PN ---
S CIWA - CIWA Score Nausea/Vomitin Muscle Tremors: 2 Anxiety: 2 Agitation: 2 Paroxysmal Sweats: 1-Minimal Palms Moist Orientation: 0-Oriented Tacttile Disturbances: 1-Very Mild Itch/Numbness Auditory Disturbances: 0-None Visual Disturbances: 1-Very Mild Sensitivity Headache: 2-Mild CIWA-Ar Total Score: 13 BHS Progress Note (SOAP) Subjective: alert,irritable,anxious,interrupted sleep,tremor Objective: 01/30/19 10:38 Vital Signs Temperature 97.2 F L 01/30/19 10:25 Pulse Rate 74 01/30/19 10:25 Respiratory Rate 18 01/30/19 10:25 Blood Pressure 142/69 01/30/19 10:25 O2 Sat by Pulse Oximetry (%) Laboratory Last Values WBC 5.9 K/mm3 (4.0-10.0) 01/29/19 07:30 RBC 4.73 M/mm3 (4.00-5.60) 01/29/19 07:30 Hgb 14.2 GM/dL (11.7-16.9) 01/29/19 07:30 Hct 41.9 % (35.4-49) 01/29/19 07:30 MCV 88.7 fl (80-96) 01/29/19 07:30 MCH 30.1 pg (25.7-33.7) 01/29/19 07:30 MCHC 33.9 g/dl (32.0-35.9) 01/29/19 07:30 RDW 13.4 % (11.9-15.9) 01/29/19 07:30 Plt Count 176 K/MM3 (134-434) 01/29/19 07:30 MPV 9.9 fl (7.5-11.1) 01/29/19 07:30 Sodium 142 mmol/L (136-145) 01/29/19 07:30 Potassium 3.9 mmol/L (3.5-5.1) 01/29/19 07:30 Chloride 109 mmol/L (98-107) H 01/29/19 07:30 Carbon Dioxide 27 mmol/L (21-32) 01/29/19 07:30 Anion Gap 6 MMOL/L (8-16) L 01/29/19 07:30 BUN 14 mg/dL (7-18) 01/29/19 07:30 Creatinine 0.6 mg/dL (0.55-1.3) 01/29/19 07:30 Est GFR (CKD-EPI)AfAm 123.15 01/29/19 07:30 Est GFR (CKD-EPI)NonAf 106.25 01/29/19 07:30 Random Glucose 112 mg/dL (74-106) H 01/29/19 07:30 Calcium 8.2 mg/dL (8.5-10.1) L 01/29/19 07:30 Total Bilirubin 0.2 mg/dL (0.2-1) 01/29/19 07:30 AST 9 U/L (15-37) L 01/29/19 07:30 ALT 24 U/L (13-61) 01/29/19 07:30 Alkaline Phosphatase 109 U/L (45-117) 01/29/19 07:30 Total Protein 6.0 g/dl (6.4-8.2) L 01/29/19 07:30 Albumin 3.4 g/dl (3.4-5.0) 01/29/19 07:30 RPR Titer Nonreactive (NONREACTIVE) 01/29/19 07:30 Assessment: 01/30/19 10:39 withdrawal symptom bgm bid initial glucose 112 Plan: continue detox,bgm bid
--- NOTE | 2019-01-30 18:21 | PN ---
S Progress Note Note: Patient adamantly refusing BGMs. No hx DM, hyperglycemia. Laboratory Last Values WBC 5.9 K/mm3 (4.0-10.0) 01/29/19 07:30 RBC 4.73 M/mm3 (4.00-5.60) 01/29/19 07:30 Hgb 14.2 GM/dL (11.7-16.9) 01/29/19 07:30 Hct 41.9 % (35.4-49) 01/29/19 07:30 MCV 88.7 fl (80-96) 01/29/19 07:30 MCH 30.1 pg (25.7-33.7) 01/29/19 07:30 MCHC 33.9 g/dl (32.0-35.9) 01/29/19 07:30 RDW 13.4 % (11.9-15.9) 01/29/19 07:30 Plt Count 176 K/MM3 (134-434) 01/29/19 07:30 MPV 9.9 fl (7.5-11.1) 01/29/19 07:30 Sodium 142 mmol/L (136-145) 01/29/19 07:30 Potassium 3.9 mmol/L (3.5-5.1) 01/29/19 07:30 Chloride 109 mmol/L (98-107) H 01/29/19 07:30 Carbon Dioxide 27 mmol/L (21-32) 01/29/19 07:30 Anion Gap 6 MMOL/L (8-16) L 01/29/19 07:30 BUN 14 mg/dL (7-18) 01/29/19 07:30 Creatinine 0.6 mg/dL (0.55-1.3) 01/29/19 07:30 Est GFR (CKD-EPI)AfAm 123.15 01/29/19 07:30 Est GFR (CKD-EPI)NonAf 106.25 01/29/19 07:30 Random Glucose 112 mg/dL (74-106) H 01/29/19 07:30 Calcium 8.2 mg/dL (8.5-10.1) L 01/29/19 07:30 Total Bilirubin 0.2 mg/dL (0.2-1) 01/29/19 07:30 AST 9 U/L (15-37) L 01/29/19 07:30 ALT 24 U/L (13-61) 01/29/19 07:30 Alkaline Phosphatase 109 U/L (45-117) 01/29/19 07:30 Total Protein 6.0 g/dl (6.4-8.2) L 01/29/19 07:30 Albumin 3.4 g/dl (3.4-5.0) 01/29/19 07:30 RPR Titer Nonreactive (NONREACTIVE) 01/29/19 07:30 Labs reviewed. Home medications reviewed. Will d/c BGM's.
[2019-01-30] MEDS: chlordiazePOXIDE HCL 25 MG CAPSULE PO PRN (20:22)
[2019-01-30] MEDS: hydrOXYzine PAMOATE 25 MG CAPSULE (FP) PO PRN (22:26)
[2019-01-30] MEDS: chlordiazePOXIDE HCL 10 MG CAPSULE PO SCH (22:26)
[2019-01-30] MEDS: THIAMINE HCL 100 MG TABLET (FP) PO SCH (22:26)
[2019-01-31] MEDS: chlordiazePOXIDE HCL 10 MG CAPSULE PO SCH ×4 (05:13→22:06)
[2019-01-31] MEDS: PRENATAL VITAMINS W/ FOLIC ACID TABLET (FP) PO SCH (10:04)
[2019-01-31] MEDS: NICOTINE 21 MG/24 HOURS TOPICAL PATCH TD SCH (10:04)
[2019-01-31] MEDS: METHOCARBAMOL 500 MG TABLET PO PRN ×3 (10:06→23:19)
--- NOTE | 2019-01-31 11:42 | PN ---
[facility] CIWA - CIWA Score Nausea/Vomitin-No Nausea/No Vomiting Muscle Tremors: 2 Anxiety: 1-Mildly Anxious Agitation: 2 Paroxysmal Sweats: 3 Orientation: 0-Oriented Tacttile Disturbances: 0-None Auditory Disturbances: 0-None Visual Disturbances: 0-None Headache: 2-Mild CIWA-Ar Total Score: 10 S Progress Note (SOAP) Subjective: c/o chills, headache, mild tremor, and anxiety. Objective: 01/31/19 11:40 Vital Signs 01/31/19 01/31/19 06:00 09:05 Temperature 96.6 F L 96.3 F L Pulse Rate 74 81 Respiratory 18 18 Rate Blood Pressure 135/88 149/79 Laboratory Last Values WBC 5.9 K/mm3 (4.0-10.0) 01/29/19 07:30 RBC 4.73 M/mm3 (4.00-5.60) 01/29/19 07:30 Hgb 14.2 GM/dL (11.7-16.9) 01/29/19 07:30 Hct 41.9 % (35.4-49) 01/29/19 07:30 MCV 88.7 fl (80-96) 01/29/19 07:30 MCH 30.1 pg (25.7-33.7) 01/29/19 07:30 MCHC 33.9 g/dl (32.0-35.9) 01/29/19 07:30 RDW 13.4 % (11.9-15.9) 01/29/19 07:30 Plt Count 176 K/MM3 (134-434) 01/29/19 07:30 MPV 9.9 fl (7.5-11.1) 01/29/19 07:30 Sodium 142 mmol/L (136-145) 01/29/19 07:30 Potassium 3.9 mmol/L (3.5-5.1) 01/29/19 07:30 Chloride 109 mmol/L (98-107) H 01/29/19 07:30 Carbon Dioxide 27 mmol/L (21-32) 01/29/19 07:30 Anion Gap 6 MMOL/L (8-16) L 01/29/19 07:30 BUN 14 mg/dL (7-18) 01/29/19 07:30 Creatinine 0.6 mg/dL (0.55-1.3) 01/29/19 07:30 Est GFR (CKD-EPI)AfAm 123.15 01/29/19 07:30 Est GFR (CKD-EPI)NonAf 106.25 01/29/19 07:30 Random Glucose 112 mg/dL (74-106) H 01/29/19 07:30 Calcium 8.2 mg/dL (8.5-10.1) L 01/29/19 07:30 Total Bilirubin 0.2 mg/dL (0.2-1) 01/29/19 07:30 AST 9 U/L (15-37) L 01/29/19 07:30 ALT 24 U/L (13-61) 01/29/19 07:30 Alkaline Phosphatase 109 U/L (45-117) 01/29/19 07:30 Total Protein 6.0 g/dl (6.4-8.2) L 01/29/19 07:30 Albumin 3.4 g/dl (3.4-5.0) 01/29/19 07:30 RPR Titer Nonreactive (NONREACTIVE) 01/29/19 07:30 Labs noted. Assessment: 01/31/19 11:40 AOX3, in no acute distress. full rom, ambulating in the unit withdrawal symptoms. Plan: continue detox increase fluids.
[2019-01-31] MEDS: hydrOXYzine PAMOATE 25 MG CAPSULE (FP) PO PRN (22:06)
[2019-01-31] MEDS: THIAMINE HCL 100 MG TABLET (FP) PO SCH (22:06)
[2019-02-01] MEDS: chlordiazePOXIDE HCL 10 MG CAPSULE PO SCH (10:10)
[2019-02-01] MEDS: PRENATAL VITAMINS W/ FOLIC ACID TABLET (FP) PO SCH (10:10)
[2019-02-01] MEDS: NICOTINE 21 MG/24 HOURS TOPICAL PATCH TD SCH (10:10)
[2019-02-01 13:37] VITALS: BP 117/73; PULSE 80; TEMP 97.5
--- NOTE | 2019-02-01 14:21 | DS ---
[facility] Detox Discharge Summary Admission Date: 01/28/19 Discharge Date: 02/01/19 - History Present History: Alcohol Dependence, Opioid Dependence Additional Comments: Patient completed detox successfully and awaiting admission to rehab as per patient. Pertinent Past History: Alcohol dependence Opioid dependence Cannabis abuse Benzo abuse Nicotine dependence - Physical Exam Results Vital Signs: Vital Signs Temperature 97.5 F L 02/01/19 13:37 Pulse Rate 80 02/01/19 13:37 Respiratory Rate 16 02/01/19 13:37 Blood Pressure 117/73 02/01/19 13:37 O2 Sat by Pulse Oximetry (%) Pertinent Admission Physical Exam Findings: Withdrawal symptoms Laboratory Tests 01/29/19 01/29/19 01/29/19 07:30 07:30 07:30 WBC 5.9 RBC 4.73 Hgb 14.2 Hct 41.9 MCV 88.7 MCH 30.1 MCHC 33.9 RDW 13.4 Plt Count 176 MPV 9.9 Sodium 142 Potassium 3.9 Chloride 109 H Carbon Dioxide 27 Anion Gap 6 L BUN 14 Creatinine 0.6 Est GFR (CKD-EPI)AfAm 123.15 Est GFR (CKD-EPI)NonAf 106.25 Random Glucose 112 H Calcium 8.2 L Total Bilirubin 0.2 AST 9 L ALT 24 Alkaline Phosphatase 109 Total Protein 6.0 L Albumin 3.4 RPR Titer Nonreactive Labs reviewed: calcium 8.2, start calcium carbonate in rehab - Treatment Hospital Course: Detox Protocol Followed, Detoxed Safely, Responded well, Discharged Condition Good, Rehab Referral Accepted - Medication Discharge Medications: Ambulatory Orders NK [No Known Home Medication] 01/28/19 - Diagnosis (1) Hypocalcemia Current Visit: Yes Status: Acute (2) Cannabis abuse Current Visit: Yes Status: Chronic (3) Opioid dependence with withdrawal Current Visit: Yes Status: Acute (4) Sedative, hypnotic or anxiolytic abuse, uncomplicated Current Visit: Yes Status: Chronic (5) Alcohol dependence with uncomplicated withdrawal Current Visit: Yes Status: Chronic (6) Nicotine dependence Current Visit: Yes Status: Chronic Qualifiers: Nicotine product type: cigarettes Substance use status: uncomplicated Qualified Code(s): F17.210 - Nicotine dependence, cigarettes, uncomplicated (7) Bipolar disorder Current Visit: Yes Status: Chronic - AMA Did Patient Leave Against Medical Advice: No (Accepted admission to [facility])
[2019-02-01] MEDS ORDERED: CALCIUM CARBONATE 650 MG TABLET PO SCH (22:00)
== END 2019-02-01 15:30 | disposition other institution (70) | DRG 773 ==
LOC: YASAS 11:15 → Y6N 17:02
PROVIDERS: ADMIT Surgery; ATTEND Surgery
PROC: HZ2ZZZZ Detoxification Services for Substance Abuse Treatment (ICD-10-PCS; principal; 2019-01-28)
DX: F11.23 Opioid dependence with withdrawal (principal); F10.230 Alcohol dependence with withdrawal, uncomplicated; F13.10 Sedative, hypnotic or anxiolytic abuse, uncomplicated; F12.10 Cannabis abuse, uncomplicated; F15.10 Other stimulant abuse, uncomplicated; F17.210 Nicotine dependence, cigarettes, uncomplicated; F31.9 Bipolar disorder, unspecified; F19.282 Other psychoactive substance dependence with psychoactive substance-induced sleep disorder; F39 Unspecified mood [affective] disorder; E83.51 Hypocalcemia; Z59.0 Homelessness
CPT/HCPCS: 36415; 80053; 85027; 86593

== ENCOUNTER 2019-02-01 15:36 | Inpatient (IN) | payer OTHER ==
[2019-02-01] MEDS ORDERED: MENTHOL/PHENOL 1 EACH UD MM PRN (17:33)
[2019-02-01] MEDS ORDERED: ACETAMINOPHEN 325 MG TABLET (FP) PO PRN (17:33)
[2019-02-01] MEDS ORDERED: MAG HYDROX/AL HYDROX/SIMETH 30 ML UNIT-DOSE CUP PO PRN (17:33)
[2019-02-01] MEDS ORDERED: IBUPROFEN 400 MG TABLET (FP) PO PRN (17:33)
[2019-02-01] MEDS ORDERED: MAGNESIUM CITRATE 300 ML BOTTLE PO PRN (17:33)
[2019-02-01] MEDS ORDERED: guaiFENesin 200 MG/10 ML 10 ML UNIT-DOSE CUPS PO PRN (17:33)
[2019-02-01] MEDS ORDERED: MAGNESIUM HYDROX 2400MG/30ML ORAL SUSPENSION 30 ML CUP PO PRN (17:33)
[2019-02-01] MEDS ORDERED: P-EPHED 60MG/TRIPROLIDI 2.5MG TABLET PO PRN (17:33)
--- NOTE | 2019-02-01 17:36 | HP ---
[facility] Rehab Assess/Revision - Admission History Admitted to Rehab from: [facility] Date of Admission to Rehab: 02/01/19 - Findings Detox History & Physical reviewed: Yes Concur with findings: Yes Inpatient Rehab Admission - Rehab Decision to Admit Inpatient rehab admission?: Yes - Initial Determination Are CD services needed?: Yes Free of communicable disease: Yes Not in need of hospitalization: Yes - Rehab Admission Criteria Previous failed treatment: No Poor recovery environment: No Comorbidities: No Lacks judgement: Yes Patient is meeting Inpatient Rehab admission criteria:: Yes
[2019-02-01] MEDS: MELATONIN 5 MG TABLETS PO PRN (21:58)
[2019-02-01] MEDS: THIAMINE HCL 100 MG TABLET (FP) PO SCH (21:58)
[2019-02-02] MEDS: PRENATAL VITAMINS W/ FOLIC ACID TABLET (FP) PO SCH (10:36)
[2019-02-02] MEDS: METHOCARBAMOL 500 MG TABLET PO SCH ×2 (14:26→21:32)
[2019-02-02] MEDS: hydrOXYzine PAMOATE 50 MG CAPSULE (FP) PO PRN ×2 (14:26→21:32)
--- NOTE | 2019-02-02 16:29 | PN ---
[facility] Progress Note Note: C/O GENERALIZE BODY ACHES AND ANXIETY. PT IS S/P DETOX. Vital Signs - 24 hr 02/01/19 02/02/19 02/02/19 17:49 00:30 03:30 Temperature 98.1 F Pulse Rate 88 Respiratory 18 18 18 Rate Blood Pressure 127/73 02/02/19 06:29 Temperature 97.6 F Pulse Rate 74 Respiratory 18 Rate Blood Pressure 125/78 PROTRACTED W/S PLAN:ROBAXIN 500 MG PO TID VISTARIL 50 MG PO Q4H PRN FOR ANXIETY
[2019-02-02] MEDS: THIAMINE HCL 100 MG TABLET (FP) PO SCH (21:32)
[2019-02-03] MEDS: METHOCARBAMOL 500 MG TABLET PO SCH ×3 (06:02→21:30)
[2019-02-03] MEDS: PRENATAL VITAMINS W/ FOLIC ACID TABLET (FP) PO SCH (10:20)
[2019-02-03] MEDS: hydrOXYzine PAMOATE 50 MG CAPSULE (FP) PO PRN ×3 (10:40→21:30)
--- NOTE | 2019-02-03 11:41 | PN ---
[facility] Progress Note Note: MR LAMAR REPORTS HE TAKES GABAPENTIN FOR NEUROPATHY. PT BROUGHT IN A BLISTER GENE WITH 3 PILLS OF GABAPENTIN 300 MG PO HS. PT STATES HE TAKES IT DURING THE DAY AND WANTS IT SO AND NOT AT HS PER THE HOME RX DIRECTION. PT REPORTS HE HAS NO REGULAR PCP HE OR PREVIOUS PROVIDERS HAVE SWITCHED LOCATIONS CONSTANTLY. PT IS ALERT O X 3. Vital Signs - 24 hr 02/03/19 02/03/19 02/03/19 00:30 03:30 06:31 Temperature 97.6 F Pulse Rate 73 Respiratory 16 18 18 Rate Blood Pressure 135/92 A:BODY ACHES HX NEUROPATHY PLAN:REORDER GABAPENTIN 300 MG PO DAILY, FIRST DOSE NOW.
[2019-02-03] MEDS ORDERED: GABAPENTIN 300 MG CAPSULE (FP) PO ONE (11:42)
[2019-02-03] MEDS: THIAMINE HCL 100 MG TABLET (FP) PO SCH (21:30)
[2019-02-04] MEDS: METHOCARBAMOL 500 MG TABLET PO SCH ×3 (08:26→21:35)
[2019-02-04] MEDS: PRENATAL VITAMINS W/ FOLIC ACID TABLET (FP) PO SCH (10:23)
[2019-02-04] MEDS: GABAPENTIN 300 MG CAPSULE (FP) PO SCH (10:23)
[2019-02-04] MEDS: hydrOXYzine PAMOATE 50 MG CAPSULE (FP) PO PRN ×2 (10:24→21:35)
[2019-02-04] MEDS: THIAMINE HCL 100 MG TABLET (FP) PO SCH (21:35)
[2019-02-05] MEDS: METHOCARBAMOL 500 MG TABLET PO SCH ×3 (07:19→21:37)
[2019-02-05] MEDS: GABAPENTIN 300 MG CAPSULE (FP) PO SCH (10:20)
[2019-02-05] MEDS: PRENATAL VITAMINS W/ FOLIC ACID TABLET (FP) PO SCH (10:20)
[2019-02-05] MEDS: hydrOXYzine PAMOATE 50 MG CAPSULE (FP) PO PRN ×2 (10:22→21:38)
[2019-02-05] MEDS: THIAMINE HCL 100 MG TABLET (FP) PO SCH (21:37)
[2019-02-05] MEDS: MELATONIN 5 MG TABLETS PO PRN (21:38)
[2019-02-06] MEDS: hydrOXYzine PAMOATE 50 MG CAPSULE (FP) PO PRN ×3 (02:12→21:37)
[2019-02-06] MEDS: METHOCARBAMOL 500 MG TABLET PO SCH ×3 (06:51→21:36)
[2019-02-06] MEDS: GABAPENTIN 300 MG CAPSULE (FP) PO SCH (10:52)
[2019-02-06] MEDS: PRENATAL VITAMINS W/ FOLIC ACID TABLET (FP) PO SCH (10:52)
[2019-02-06] MEDS: THIAMINE HCL 100 MG TABLET (FP) PO SCH (21:36)
[2019-02-06] MEDS: MELATONIN 5 MG TABLETS PO PRN (21:37)
[2019-02-07] MEDS: METHOCARBAMOL 500 MG TABLET PO SCH ×3 (06:41→21:43)
[2019-02-07] MEDS: PRENATAL VITAMINS W/ FOLIC ACID TABLET (FP) PO SCH (10:00)
[2019-02-07] MEDS: GABAPENTIN 300 MG CAPSULE (FP) PO SCH (10:00)
[2019-02-07] MEDS: THIAMINE HCL 100 MG TABLET (FP) PO SCH (21:43)
[2019-02-07] MEDS: hydrOXYzine PAMOATE 50 MG CAPSULE (FP) PO PRN (21:43)
[2019-02-07] MEDS: MELATONIN 5 MG TABLETS PO PRN (21:43)
[2019-02-08] MEDS: METHOCARBAMOL 500 MG TABLET PO SCH ×3 (07:10→21:37)
[2019-02-08] MEDS: GABAPENTIN 300 MG CAPSULE (FP) PO SCH (10:12)
[2019-02-08] MEDS: PRENATAL VITAMINS W/ FOLIC ACID TABLET (FP) PO SCH (10:12)
[2019-02-08] MEDS: THIAMINE HCL 100 MG TABLET (FP) PO SCH (21:37)
[2019-02-08] MEDS: MELATONIN 5 MG TABLETS PO PRN (21:38)
[2019-02-08] MEDS: hydrOXYzine PAMOATE 50 MG CAPSULE (FP) PO PRN (21:38)
[2019-02-09] MEDS: METHOCARBAMOL 500 MG TABLET PO SCH ×3 (07:59→21:29)
[2019-02-09] MEDS: GABAPENTIN 300 MG CAPSULE (FP) PO SCH (10:36)
[2019-02-09] MEDS: PRENATAL VITAMINS W/ FOLIC ACID TABLET (FP) PO SCH (10:36)
[2019-02-09] MEDS: MELATONIN 5 MG TABLETS PO PRN (21:29)
[2019-02-09] MEDS: THIAMINE HCL 100 MG TABLET (FP) PO SCH (21:29)
[2019-02-09] MEDS: hydrOXYzine PAMOATE 50 MG CAPSULE (FP) PO PRN (21:30)
[2019-02-10] MEDS: METHOCARBAMOL 500 MG TABLET PO SCH ×3 (07:19→21:48)
[2019-02-10] MEDS: PRENATAL VITAMINS W/ FOLIC ACID TABLET (FP) PO SCH (10:47)
[2019-02-10] MEDS: GABAPENTIN 300 MG CAPSULE (FP) PO SCH (10:47)
[2019-02-10] MEDS: hydrOXYzine PAMOATE 50 MG CAPSULE (FP) PO PRN (21:48)
[2019-02-10] MEDS: MELATONIN 5 MG TABLETS PO PRN (21:48)
[2019-02-10] MEDS: THIAMINE HCL 100 MG TABLET (FP) PO SCH (21:48)
[2019-02-11] MEDS: METHOCARBAMOL 500 MG TABLET PO SCH ×3 (07:45→21:43)
[2019-02-11] MEDS: PRENATAL VITAMINS W/ FOLIC ACID TABLET (FP) PO SCH (10:12)
[2019-02-11] MEDS: GABAPENTIN 300 MG CAPSULE (FP) PO SCH (10:12)
[2019-02-11] MEDS: THIAMINE HCL 100 MG TABLET (FP) PO SCH (21:43)
[2019-02-11] MEDS: MELATONIN 5 MG TABLETS PO PRN (21:43)
[2019-02-11] MEDS: hydrOXYzine PAMOATE 50 MG CAPSULE (FP) PO PRN (21:44)
[2019-02-12] MEDS: METHOCARBAMOL 500 MG TABLET PO SCH ×3 (06:28→21:53)
[2019-02-12] MEDS: GABAPENTIN 300 MG CAPSULE (FP) PO SCH (10:31)
[2019-02-12] MEDS: PRENATAL VITAMINS W/ FOLIC ACID TABLET (FP) PO SCH (10:31)
[2019-02-12] MEDS: THIAMINE HCL 100 MG TABLET (FP) PO SCH (21:53)
[2019-02-12] MEDS: hydrOXYzine PAMOATE 50 MG CAPSULE (FP) PO PRN (21:54)
[2019-02-12] MEDS: MELATONIN 5 MG TABLETS PO PRN (21:55)
[2019-02-13] MEDS: METHOCARBAMOL 500 MG TABLET PO SCH ×3 (06:22→21:46)
[2019-02-13] MEDS: PRENATAL VITAMINS W/ FOLIC ACID TABLET (FP) PO SCH (10:29)
[2019-02-13] MEDS: GABAPENTIN 300 MG CAPSULE (FP) PO SCH (10:30)
--- NOTE | 2019-02-13 12:31 | PN ---
S Progress Note (SOAP) Subjective: PT IS SCHEDULED TO DISCHARGE ON 02/16/19. PT HAS MET WITH HIS COUNSELOR AND HAS BEEN REFERRED TO CD AFTERCARE AT [facility] IN [place], [place]. PT REPORTS HE HAS NO CURRENT PCP AND WILL SEEK PCP AFTER DISCHARGE BUT HAS UTILIZED [facility] IN THE PAST AND WILL FOLLOW UP WITH THEM AFTER DISCHARGE FOR MEDICAL MANAGEMENT. COURTESY RX FOR GABAPENTIN 300 MG PO HS ELECTRONICALLY SENT TO [facility] FOR PATIENT [employer] AFTER DISCHARGE. PT IS ALERT O X 3 . DENIES S/H/I. Objective: 02/13/19 12:37 Vital Signs - 24 hr 02/13/19 02/13/19 02/13/19 00:30 03:30 06:52 Temperature 97.6 F Pulse Rate 67 Respiratory 18 18 18 Rate Blood Pressure 145/84 Home Medications Medication Instructions Recorded Gabapentin [Neurontin] 300 mg PO HS #20 capsule 02/13/19 Assessment: 02/13/19 12:37 NAD MEDICALLY STABLE Plan: FOLLOW UP WITH CD AFTERCARE RECOMMENDED. FOLLOW UP WITH PCP AT [facility] 1-2 WEEKS AFTER DISCHARGE.
[2019-02-13] MEDS: hydrOXYzine PAMOATE 50 MG CAPSULE (FP) PO PRN ×2 (19:19→23:33)
[2019-02-13] MEDS: THIAMINE HCL 100 MG TABLET (FP) PO SCH (21:45)
[2019-02-13] MEDS: MELATONIN 5 MG TABLETS PO PRN (21:46)
[2019-02-14] MEDS: METHOCARBAMOL 500 MG TABLET PO SCH ×3 (06:20→22:01)
[2019-02-14] MEDS: GABAPENTIN 300 MG CAPSULE (FP) PO SCH (10:21)
[2019-02-14] MEDS: PRENATAL VITAMINS W/ FOLIC ACID TABLET (FP) PO SCH (10:21)
[2019-02-14] MEDS: hydrOXYzine PAMOATE 50 MG CAPSULE (FP) PO PRN ×3 (12:13→22:01)
[2019-02-14] MEDS: MELATONIN 5 MG TABLETS PO PRN (22:01)
[2019-02-14] MEDS: THIAMINE HCL 100 MG TABLET (FP) PO SCH (22:01)
[2019-02-15] MEDS: METHOCARBAMOL 500 MG TABLET PO SCH ×3 (06:19→21:55)
[2019-02-15] MEDS: GABAPENTIN 300 MG CAPSULE (FP) PO SCH (10:28)
[2019-02-15] MEDS: PRENATAL VITAMINS W/ FOLIC ACID TABLET (FP) PO SCH (10:28)
[2019-02-15] MEDS: hydrOXYzine PAMOATE 50 MG CAPSULE (FP) PO PRN ×2 (17:39→21:56)
[2019-02-15] MEDS: THIAMINE HCL 100 MG TABLET (FP) PO SCH (21:55)
[2019-02-15] MEDS: MELATONIN 5 MG TABLETS PO PRN (21:56)
[2019-02-16] MEDS: METHOCARBAMOL 500 MG TABLET PO SCH (06:08)
[2019-02-16 07:05] VITALS: BP 132/72; PULSE 81; TEMP 98.5
[2019-02-16] MEDS: GABAPENTIN 300 MG CAPSULE (FP) PO SCH (10:10)
[2019-02-16] MEDS: PRENATAL VITAMINS W/ FOLIC ACID TABLET (FP) PO SCH (10:10)
--- NOTE | 2019-02-16 11:00 | PN ---
S Progress Note Note: PT DISCHARGED TODAY. ALERT O X 3. AMBULATING WITH STEADY GAIT. PT HAS BEEN REMINDED TO FOLLOW UP WITH HIS PRIMARY CARE AT [facility] FOR MEDICAL MANAGEMENT.
== END 2019-02-16 10:40 | disposition home or self-care (01) | DRG 772 ==
LOC: YASAS 15:36 → Y5N 15:37
PROVIDERS: ADMIT Neuromusculoskeletal Medicine & OMM; ATTEND Neuromusculoskeletal Medicine & OMM
PROC: HZ42ZZZ Group Counseling for Substance Abuse Treatment, Cognitive-Behavioral (ICD-10-PCS; principal; 2019-02-01)
DX: F10.20 Alcohol dependence, uncomplicated (principal); F12.20 Cannabis dependence, uncomplicated; F17.210 Nicotine dependence, cigarettes, uncomplicated; Z86.69 Personal history of other diseases of the nervous system and sense organs; Z59.0 Homelessness